=== PATIENT | male | born 1960 | race Caucasian/White ===

== ENCOUNTER 2017-07-14 06:26 | Day surgery (SDC) | payer BC ==
[~2017-07-14 06:26] MED LIST: Dextrose 5%-0.45% NaCl 1,000 ML IV SCH; Midazolam 1 MG/ML 2 ML SDV ONE; Sodium Chloride 0.9% 10 ML Syringe FLUSH PRN; fentaNYL 100 MCG/2 ML SDV ONE
[2017-07-14] MEDS ORDERED: fentaNYL 100 MCG/2 ML SDV IV ONE ×3 (06:27→07:28)
[2017-07-14] MEDS ORDERED: Midazolam 1 MG/ML 2 ML SDV IV ONE ×3 (06:27→07:29)
--- NOTE | 2017-07-14 08:13 | OR ---
DATE: 07/14/2017 PROCEDURE: Esophagogastroduodenoscopy. INSTRUMENT USED: GIF-H180 Olympus video panendoscope. PREMEDICATIONS: No oral or topical anesthesia used. Fentanyl 100 mcg intravenous, Versed 2 mg intravenous. The procedure was done under pulse oximetry, BP recording, and district operations manager. INDICATION: The patient with previous grade D GERD, on PPI with recent persistent low dysphagia. Esophagogastroduodenoscopy is performed for detection of any active erosive lesions, Donaldson esophagus and/or malignancy also under consideration, esophageal dilatation if indicated, endoscopic hemostasis therapy if needed. DESCRIPTION OF PROCEDURE: The scope was passed with ease. Adequate visualization of the esophagus was made from proximal to distal areas. No upper esophageal lesions identified. There was some stricture of the distal esophagus, but the tip of the scope was passed with ease to visualize the gastric mucosa. No uphill or downhill esophageal varices. No Cathy-Leonard tear. Grade A erosive changes were noted by Hollister criteria. No esophageal polyp or tumor mass identified. Sliding hiatal hernia was noted. Z- line was seen at around 39 cm distal to the oral verge. No proximal gastric varices noted. Gastric fundus examination by retroflexion showed no polypoid lesions. No gastric ulcer, malignant mass, or vascular ectasia identified. Duodenal bulb showed no ulcer. Visualized second part of the duodenum was unremarkable. No bleeding was noted from any of the visualized areas at the completion of examination. Photographs were taken of the duodenal bulb, gastric antrum, fundus, and distal esophagus. IMPRESSION: 1. Grade A gastroesophageal reflux disease. 2. Peptic esophageal stricture. 3. Sliding hiatal hernia. The patient tolerated the procedure well. [facility] /[id number]
--- NOTE | 2017-07-14 08:16 | OR ---
DATE: 07/14/2017 PROCEDURE DONE: Esophageal dilatation. INSTRUMENT USED: Harvey bougie esophageal dilator, Chadian size 48. PREMEDICATIONS: Done after EGD. INDICATION: Peptic esophageal stricture. DESCRIPTION OF PROCEDURE: Esophageal dilatation was done with ease using Chadian size 48 dilator. No blood was noted at dilator tip after completion. IMPRESSION: Peptic esophageal stricture. The patient tolerated the procedure well. [facility] /[id number]
[2017-07-14 10:17] VITALS: BP 109/69
== END 2017-07-14 09:35 | disposition home or self-care (01) ==
LOC: DL.ENDO 06:26
PROVIDERS: ATTEND Internal Medicine Gastroenterology
DX: K22.2 Esophageal obstruction (principal); K44.9 Diaphragmatic hernia without obstruction or gangrene; K21.9 Gastro-esophageal reflux disease without esophagitis; F32.9 Major depressive disorder, single episode, unspecified; E66.9 Obesity, unspecified
CPT/HCPCS: J2250; J3010; J7042

== ENCOUNTER 2021-10-05 23:59 | Emergency (ER) | payer BC ==
[2021-10-06 00:18] VITALS: BP 147/81; PULSE 73
[2021-10-06] MEDS ORDERED: Acetaminophen 325 MG Tab PO ONE (00:38)
[2021-10-06 01:06] LABS: ANION GAP 15.1 mEq/L (7-13)
== END 2021-10-06 03:06 | disposition home or self-care (01) ==
LOC: DL.ED 23:59
DX: S70.11XA Contusion of right thigh, initial encounter (principal); M79.604 Pain in right leg; K21.9 Gastro-esophageal reflux disease without esophagitis; Z79.899 Other long term (current) drug therapy; Z90.49 Acquired absence of other specified parts of digestive tract; Z20.822 Contact with and (suspected) exposure to COVID-19; X58.XXXA Exposure to other specified factors, initial encounter
CPT/HCPCS: 36415; 80053; 81003; 83605; 83735; 84484; 85025; 85379; 85610; 87040; 87635; 93971; 99283; 99284; A9270; U0002

== ENCOUNTER 2022-07-26 03:11 | Emergency (ER) | payer BC ==
[2022-07-26 03:41] VITALS: BP 153/94; PULSE 75
[2022-07-26] MEDS ORDERED: Fluorescein 1 MG Ophth Strip EYEBOTH ONE (03:41)
[2022-07-26] MEDS ORDERED: Dexamethasone/Tobramycin 0.1-0.3% Ophth Oint 3.5 GM Tube EYEBOTH ONE (03:54)
[2022-07-26] MEDS ORDERED: Tobramycin 0.3% Ophth Oint 3.5 GM Tube EYEBOTH ONE (04:00)
[2022-07-26] MEDS ORDERED: Tobramycin 0.3% Ophth Drops 5 ML Bottle EYEBOTH ONE (04:22)
== END 2022-07-26 04:31 | disposition home or self-care (01) ==
LOC: DL.ED 03:11
DX: H16.133 Photokeratitis, bilateral (principal); K21.9 Gastro-esophageal reflux disease without esophagitis; Z79.899 Other long term (current) drug therapy
CPT/HCPCS: 99283; A9270